=== PATIENT | male | born 1945 | race Caucasian/White ===

== ENCOUNTER → 2017-06-07 | Outpatient (REF) | payer MEDICARE, OTHER ==
[2017-06-07 17:11] LABS: ALBUMIN 3.8 GM/DL (3.2-5.2); ALBUMIN/GLOBULIN RATIO 1.15 (1.00-1.93); ALKALINE PHOSPHATASE 69 U/L (45-117); ALT/SGPT 53 U/L (12-78); ANION GAP 4 MEQ/L (8-16); AST/SGOT 38 U/L (7-37); BILIRUBIN,TOTAL 0.9 MG/DL (0.2-1.0); BLOOD UREA NITROGEN 22 MG/DL (7-18); CALCIUM LEVEL 9.3 MG/DL (8.8-10.2); CARBON DIOXIDE LEVEL 32 MEQ/L (21-32); CHLORIDE LEVEL 106 MEQ/L (98-107); CHOLESTEROL LEVEL 175 MG/DL (<200); CREATININE FOR GFR 1.06 MG/DL (0.70-1.30); GLOMERULAR FILTRATION RATE > 60.0 (>42); GLUCOSE, FASTING 86 MG/DL (70-100); HDL CHOLESTEROL 72 MG/DL (>40); LDL CHOLESTEROL 91.8 MG/DL (<100); NON-HDL-C 103 MG/DL; POTASSIUM SERUM 4.8 MEQ/L (3.5-5.1); SODIUM LEVEL 142 MEQ/L (136-145); TOTAL PROTEIN 7.1 GM/DL (6.4-8.2); TRIGLYCERIDES LEVEL 56 MG/DL (<150)
== END ==
LOC: M SFHCCLAY 10:07
DX: I10 Essential (primary) hypertension (principal); E78.00 Pure hypercholesterolemia, unspecified
CPT/HCPCS: 80053

== ENCOUNTER → 2018-06-10 | Outpatient (REF) | payer MEDICARE, OTHER ==
[2018-06-10 17:46] LABS: ALBUMIN 3.6 GM/DL (3.2-5.2); ALT/SGPT 40 U/L (12-78); BILIRUBIN,TOTAL 0.6 MG/DL (0.2-1.0); BLOOD UREA NITROGEN 22 MG/DL (7-18); CALCIUM LEVEL 9.1 MG/DL (8.8-10.2); CARBON DIOXIDE LEVEL 30 MEQ/L (21-32); CHLORIDE LEVEL 107 MEQ/L (98-107); CHOLESTEROL LEVEL 179 MG/DL (<200); CHOLESTEROL RISK RATIO 2.452 (<5); CREATININE FOR GFR 0.95 MG/DL (0.70-1.30); GLOMERULAR FILTRATION RATE > 60.0 (>42); GLUCOSE, FASTING 95 MG/DL (70-100); HDL CHOLESTEROL 73 MG/DL (>40); LDL CHOLESTEROL 96 MG/DL (<100); NON-HDL-C 106 MG/DL; POTASSIUM SERUM 4.6 MEQ/L (3.5-5.1); SODIUM LEVEL 141 MEQ/L (136-145); TOTAL PROTEIN 6.4 GM/DL (6.4-8.2); TRIGLYCERIDES LEVEL 50 MG/DL (<150)
== END ==
LOC: M SFHCCLAY 08:57
PROVIDERS: ATTEND Family Medicine
DX: I10 Essential (primary) hypertension (principal); E78.00 Pure hypercholesterolemia, unspecified

== ENCOUNTER → 2018-10-27 | Outpatient (REF) | payer MEDICARE, OTHER ==
[~2018-10-27] MED LIST: ASPI81TA85 PO; ATOR1TAB21 PO; BENA10TA9 PO; KP F1200 PO; METO1TAB33 PO; VITA200010 PO
[2018-10-27 13:14] LABS: BLOOD UREA NITROGEN 23 MG/DL (7-18); CALCIUM LEVEL 9.1 MG/DL (8.8-10.2); CARBON DIOXIDE LEVEL 28 MEQ/L (21-32); CHLORIDE LEVEL 106 MEQ/L (98-107); CREATININE FOR GFR 1.01 MG/DL (0.70-1.30); GLOMERULAR FILTRATION RATE > 60.0 (>42); GLUCOSE, FASTING 86 MG/DL (70-100); POTASSIUM SERUM 4.5 MEQ/L (3.5-5.1); SODIUM LEVEL 142 MEQ/L (136-145)
== END ==
LOC: M SFHCCLAY 08:57
PROVIDERS: ATTEND Family Medicine
DX: I10 Essential (primary) hypertension (principal)

== ENCOUNTER → 2020-12-14 | Outpatient (CLI) | payer MEDICARE, OTHER ==
[~2020-12-14] MED LIST changes: -ASPI81TA85 PO; +ASPI81TA86 PO; -BENA10TA9 PO; +BENA1TAB24 PO
--- NOTE | 2020-12-14 15:52 | REP ---
INDICATION: M54.2. COMPARISON: MRI 05/11/2008. TECHNIQUE: Seven views cervical spine. FINDINGS: There is no radiographic evidence of fracture or dislocation. There is normal cervical lordosis. There is no prevertebral soft tissue swelling. There is mild diffuse spurring. There is slight disc space narrowing at C4-5 and C5-6. There is diffuse narrowing, sclerosis and spurring at the posterior facet joints. There is mild to moderate bilateral foraminal narrowing at multiple levels. IMPRESSION: Diffuse degenerative changes without definite radiographic evidence of acute fracture or dislocation. If there is continued clinical concern for a cervical spine fracture, CT of the cervical spine is recommended. <Electronically signed by Jonathan Jorge > 12/14/20 [id number]
--- NOTE | 2020-12-14 15:54 | REP ---
INDICATION: S49.91XA COMPARISON: 11/22/2009. TECHNIQUE: Three views right shoulder. FINDINGS: There is no evidence of acute fracture, dislocation, or intrinsic bone disease.There is mild narrowing and spurring at the acromioclavicular joint. IMPRESSION: No fracture or dislocation. Mild degenerative changes AC joint. <Electronically signed by Jonathan Jorge > 12/14/20 [id number]
== END ==
LOC: M CLY 10:40
PROVIDERS: ATTEND Family Medicine
DX: S49.91XA Unspecified injury of right shoulder and upper arm, initial encounter (principal); M54.2 Cervicalgia; X58.XXXA Exposure to other specified factors, initial encounter; Y92.9 Unspecified place or not applicable; Y99.9 Unspecified external cause status
CPT/HCPCS: 72050; 73030; G0463

== ENCOUNTER → 2021-07-11 | Outpatient (REF) | payer MEDICARE, OTHER ==
[2021-07-11 11:25] LABS: BASO # 0.1 10^3/uL (0.0-0.2); BASO % 0.9 % (0.0-1.0); EOS # 0.6 10^3/uL (0.0-0.5); EOS % 11.1 % (0.0-3.0); HEMATOCRIT 45.8 % (42.0-52.0); HEMOGLOBIN 15.4 g/dl (13.5-17.5); LYMPH # 1.6 10^3/uL (1.5-5.0); LYMPH % 27.7 % (24.0-44.0); MEAN CORPUSCULAR HEMOGLOBIN 32.3 pg (27.0-33.0); MEAN CORPUSCULAR HGB CONC 33.6 g/dl (32.0-36.5); MONO # 0.7 10^3/uL (0.0-0.8); MONO % 11.6 % (2.0-8.0); NEUTROPHILS # 2.7 10^3/uL (1.5-8.5); NEUTROPHILS % 48.5 % (36.0-66.0); PLATELET COUNT, AUTOMATED 197 10^3/uL (150-450); RED BLOOD COUNT 4.77 10^6/uL (4.30-6.10); WHITE BLOOD COUNT 5.6 10^3/uL (4.0-10.0)
[2021-07-11 12:09] LABS: ALBUMIN 3.3 GM/DL (3.2-5.2); ALT/SGPT 31 U/L (12-78); BILIRUBIN,TOTAL 0.7 MG/DL (0.2-1.0); BLOOD UREA NITROGEN 21 MG/DL (7-18); CALCIUM LEVEL 8.9 MG/DL (8.8-10.2); CARBON DIOXIDE LEVEL 32 MEQ/L (21-32); CHLORIDE LEVEL 104 MEQ/L (98-107); CHOLESTEROL LEVEL 158 MG/DL (<200); CHOLESTEROL RISK RATIO 2.164 (<5); CREATININE FOR GFR 1.04 MG/DL (0.70-1.30); FREE T4 0.89 NG/DL (0.76-1.46); GLOMERULAR FILTRATION RATE > 60.0 (>42); GLUCOSE, FASTING 91 MG/DL (70-100); HDL CHOLESTEROL 73 MG/DL (>40); LDL CHOLESTEROL 74 MG/DL (<100); NON-HDL-C 85 MG/DL; POTASSIUM SERUM 4.3 MEQ/L (3.5-5.1); SODIUM LEVEL 139 MEQ/L (136-145); TOTAL PROTEIN 6.3 GM/DL (6.4-8.2); TRIGLYCERIDES LEVEL 57 MG/DL (<150); URIC ACID 6.5 MG/DL (3.5-7.2)
== END ==
LOC: M SFHCCLAY 07:36
PROVIDERS: ATTEND Family Medicine
DX: E78.00 Pure hypercholesterolemia, unspecified (principal); I10 Essential (primary) hypertension; C02.4 Malignant neoplasm of lingual tonsil; M1A.9XX1 Chronic gout, unspecified, with tophus (tophi)

== ENCOUNTER → 2021-07-11 | Outpatient (CLI) | payer MEDICARE, OTHER | LOC: M CLY 07:45 | PROVIDERS: ATTEND Family Medicine | DX: M1A.9XX1 Chronic gout, unspecified, with tophus (tophi) (principal); M19.071 Primary osteoarthritis, right ankle and foot ==

== ENCOUNTER 2023-01-14 08:19 | Day surgery (SDC) | payer MEDICARE, OTHER ==
[~2023-01-14] VITALS: Ht 180.3 cm; Wt 64.3 kg
[~2023-01-14 08:19] MED LIST changes: +HYDR-3490 PO; +NS 1,000 ML IV ONE
[2023-01-14] MEDS ORDERED: propofoL 200 MG/20 ML VIAL As Ordered ONE (09:13)
[2023-01-14] MEDS ORDERED: LIDOCAINE 2% 100MG/5ML SDV (FOR ANES.) As Ordered ONE (09:13)
[2023-01-14 09:40] VITALS: TEMP 97.3
[2023-01-14 09:55] VITALS: BP 121/71; O2SAT 99
== END 2023-01-14 10:09 | disposition home or self-care (01) ==
LOC: M OPP 08:19
PROVIDERS: ATTEND Internal Medicine Gastroenterology
DX: K64.0 First degree hemorrhoids (principal); K57.30 Diverticulosis of large intestine without perforation or abscess without bleeding; Z86.010 Personal history of colon polyps; I10 Essential (primary) hypertension; E78.5 Hyperlipidemia, unspecified; Z85.818 Personal history of malignant neoplasm of other sites of lip, oral cavity, and pharynx; Z92.3 Personal history of irradiation; Z79.899 Other long term (current) drug therapy

== ENCOUNTER → 2023-09-03 | Outpatient (REF) | payer MEDICARE, OTHER ==
[~2023-09-03] MED LIST changes: -NS 1,000 ML IV ONE
== END ==
LOC: M SFHCCLAY 10:30
PROVIDERS: ATTEND Family Medicine
DX: K52.9 Noninfective gastroenteritis and colitis, unspecified (principal)

== ENCOUNTER → 2023-09-05 | Outpatient (REF) | payer MEDICARE, OTHER | LOC: M SFHCCLAY 12:10 | PROVIDERS: ATTEND Family Medicine | DX: K52.9 Noninfective gastroenteritis and colitis, unspecified (principal) ==

== ENCOUNTER → 2024-01-31 | Outpatient (REF) | payer MEDICARE, OTHER ==
[2024-01-31 19:55] LABS: BLOOD UREA NITROGEN 27 MG/DL (9-23); CALCIUM LEVEL 9.9 MG/DL (8.3-10.6); CARBON DIOXIDE LEVEL 31 MMOL/L (20-31); CHLORIDE LEVEL 103 MMOL/L (98-107); CHOLESTEROL LEVEL 187 MG/DL (<200); CHOLESTEROL RISK RATIO 2.96 (<5); CREATININE FOR GFR 1.05 MG/DL (0.70-1.30); GLOMERULAR FILTRATION RATE > 60.0 (>42); GLUCOSE, FASTING 83 MG/DL (74-106); HDL CHOLESTEROL 63.1 MG/DL (>40); LDL CHOLESTEROL 109.3 MG/DL (<100); NON-HDL-C 123.9 MG/DL; POTASSIUM SERUM 4.6 MMOL/L (3.5-5.1); PROSTATIC SPECIFIC AG MONITOR 1.91 NG/ML (< 4.00); SODIUM LEVEL 142 MMOL/L (136-145); TRIGLYCERIDES LEVEL 73 MG/DL (<150)
[2024-01-31 19:56] LABS: THYROID STIMULATING HORMONE 4.281 uIU/ML (0.55-4.78)
[2024-01-31 19:57] LABS: TESTOSTERONE 539 NG/DL (241-827)
[2024-01-31 20:00] LABS: URIC ACID 7.3 MG/DL (3.7-9.2)
== END ==
LOC: M LAB REF 16:13
PROVIDERS: ATTEND Pediatrics
DX: E78.5 Hyperlipidemia, unspecified (principal); I10 Essential (primary) hypertension; F52.21 Male erectile disorder; Z12.5 Encounter for screening for malignant neoplasm of prostate; Z79.899 Other long term (current) drug therapy